=== PATIENT | female | born 1990 | race African-American/Black ===

== ENCOUNTER 2017-01-02 04:15 | Emergency (ER) | payer MEDICAID ==
[~2017-01-02] VITALS: Ht 167.6 cm; Wt 47.6 kg
[~2017-01-02 04:15] MED LIST: NAPR-223 PO; SULF400T11 PO
[2017-01-02 04:51] LABS: Basophils # (auto) 0.1 uL; Basophils % (auto) 1.2 % (0.0-2.0); Eosinophils # (auto) 0.2 uL; Eosinophils % (auto) 2.7 % (0.0-7.0); Hematocrit 40.4 % (36.0-46.0); Hemoglobin 13.9 g/dL (12.2-16.2); Lymphocytes % (auto) 32.7 % (10.0-50.0); Mean Corpuscular Hgb Conc. 34.5 g/dL (32.0-36.0); Mean Platelet Volume 8.4 fL (6.9-10.8); Monocytes # (auto) 0.5 uL; Monocytes % (auto) 7.4 % (0.0-12.0); Neutrophils # (auto) 3.4 uL; Nucleated Red Blood Cells % 0.1 %; Platelet Count (auto) 221 10^3/uL (140-450); Red Cell Distribution Width 13.7 % (11.8-14.3); White Blood Cell 6.1 10^3/uL (4.4-10.8)
[2017-01-02 05:12] LABS: Albumin 4.2 g/dL (3.4-5.0); Anion Gap 10 (5-15); BUN/Creatinine Ratio 8.1; Blood Urea Nitrogen 7 mg/dL (7-18); Calcium 8.9 mg/dL (8.5-10.1); Carbon Dioxide 25 mmol/L (21-32); Chloride 107 mmol/L (98-107); GFR African American 104 mL/min; GFR Non-African American 86 mL/min; Glucose 98 mg/dL (74-106); Sodium 142 mmol/L (136-145)
[2017-01-02 05:17] LABS: Alkaline Phosphatase 57 U/L (45-117); Aspartate Aminotransferase 15 U/L (15-37); Bilirubin, Total 0.5 mg/dL (0.2-1.0); Total Protein 7.7 g/dL (6.4-8.2)
[2017-01-02] MEDS ORDERED: LORazepam 0.5 MG TAB PO ONE (07:00)
[2017-01-02] MEDS ORDERED: POTASSIUM CHL 10% (20 MEQ/15ML) 15ml ORAL SOLN PO ONE (07:00)
[2017-01-02 07:21] VITALS: BP 122/77
[2017-01-02] MEDS ORDERED: diphenhdrAMINE HCL 50 MG/1 ML VL ONE (08:22)
[2017-01-02] MEDS ORDERED: SODIUM CHLORIDE LOCK 10 ML ONE (08:22)
[2017-01-02] MEDS ORDERED: MIDAZOLAM HCL 5 MG/ML-1ML VIAL ONE (08:22)
[2017-01-02] MEDS ORDERED: fentaNYL CITRATE 100 MCG/2 ML VL ONE (08:23)
== END 2017-01-02 15:56 | disposition home or self-care (01) ==
LOC: ER 04:16
DX: F41.9 Anxiety disorder, unspecified (principal)
CPT/HCPCS: 36415; 71020; 80053; 80307; 84484; 85025; 93005; 94761; 99285; J1200; J2250; J3010